=== PATIENT | male | born 1950 | race Caucasian/White ===

== ENCOUNTER 2017-12-06 15:38 | Inpatient (IN) | payer OTHER, MEDICARE ==
[2017-12-06] VITALS (17 sets, daily range): BP systolic 122–183; BP diastolic 45–89
[~2017-12-06] VITALS: Ht 193 cm; Wt 114.8 kg
[~2017-12-06 15:38] MED LIST: ASPIRIN325 PO; COLACE100 MG PO; DICLOFENAC SODI25 MG PO; NORCO 10-325 T1 EACH PO; TYLENOL325 MG PO; XARELTO10 MG PO; ZOCOR20 MG PO
[2017-12-06 16:03] LABS: ABSOLUTE BASOPHILS 0.1 thou/uL (0.0-0.2); ABSOLUTE EOSINOPHILS 0.5 thou/uL (0.0-0.7); ABSOLUTE LYMPHOCYTES 4.7 thou/uL (0.8-5.3); ABSOLUTE NEUTROPHILS 5.2 thou/uL (1.6-8.1); BASOPHILS 0.6 %; EOSINOPHILS 4.3 %; HEMATOCRIT 49.2 % (42.0-52.0); HEMOGLOBIN 16.3 gm/dL (14.0-18.0); LYMPHOCYTES 40.7 %; MCHC 33.1 g/dL (28.0-37.0); MCV 90.7 fL (80.0-100.0); MONOCYTES 8.6 %; MPV 7.9 fl. (7.2-11.1); NUCLEATED RBCS 0 /100WBC; PLATELET COUNT* 283 thou/uL (150-400); POLYS 45.8 %; RBC 5.43 mil/uL (4.50-6.00); RDW-CV 14.7 % (10.5-14.5); WBC 11.5 thou/uL (4.0-11.0)
[2017-12-06 16:08] LABS: ANION GAP 6 mmol/L (7-16); BUN 17 mg/dL (7-18); CALCIUM 9.5 mg/dL (8.5-10.1); CHLORIDE 105 mmol/L (98-107); CO2 27 mmol/L (21-32); CREATININE 1.1 mg/dL (0.6-1.3); GLUCOSE 112 mg/dL (70-99); POTASSIUM 3.7 mmol/L (3.5-5.1); SODIUM 138 mmol/L (136-145)
[2017-12-06 16:09] LABS: APTT 20.3 Seconds (25.0-31.3); PROTIME 9.4 Seconds (9.20-11.50)
[2017-12-06 16:19] LABS: ALBUMIN 3.9 g/dL (3.4-5.0); ALKALINE PHOSPHATASE 74 U/L (46-116); NT-PRO BRAIN NAT PEPTIDE 70 pg/mL (<300); SGOT 21 U/L (15-37); SGPT 52 U/L (30-65); TOTAL BILIRUBIN 0.8 mg/dL (<0.1-1.0); TOTAL PROTEIN 7.5 g/dL (6.4-8.2); TROPONIN-I LEVEL <0.06 ng/mL (<0.06)
--- NOTE | 2017-12-06 16:55 | NUR ---
REVIEWED DOCUMENTATION OF NSG STUDENT Alber MOJICA & JEFFERSON W/ SAME.
[2017-12-06] MEDS ORDERED: DICLOFENAC SODI75 MG PO (17:42)
--- NOTE | 2017-12-06 18:13 | NUR ---
SEE STROKE AND TPA FLOW SHEET.
--- NOTE | 2017-12-06 18:37 | NUR ---
PT FROM ER TO ROOM ICU 5 AT 1800. NIH 1 AT THIS TIME. TPA FINISHED ADMINISTERING IN THE ED. PT TO MRI MOMENTARILY. ASSESSMENT CHARTED. VSS AT THIS TIME, BP ELEVATED. WILL CONTINUE TO MONITOR.
--- NOTE | 2017-12-06 21:20 | NUR ---
PATIENT ALERT NIHSS OF 1 D/T MINIMAL LEFT SIDE DROOPING WHEN HE SMILES. HE IS ORIENT X4 DENIES WEAKNESS. PERFORMED A BEDSIDE SWALLOW STUDY. PT ABLE TO SWALLOW WATER WITH/OUT COMPLICATIONS. SPO2 STAYED THE SAME. ABLE TO CLEAR HIS THROAT. NO SOB. NO LEAKAGE FROM MOUTH. SPOKE WITH DR. ORTIZ ORDERS TO ALLOW PT TO EAT. HE WILL BE NPO AFTER MIDNIGHT. WILL CONTINUE TO MONITOR CLOSELY.
[2017-12-07] VITALS (11 sets, daily range): BP systolic 145–161; BP diastolic 64–73
[2017-12-07 04:44] LABS: HEMATOCRIT 43.4 % (42.0-52.0); HEMOGLOBIN 14.6 gm/dL (14.0-18.0); MCH 30.3 pg (26.0-34.0); MCHC 33.6 g/dL (28.0-37.0); MCV 90.3 fL (80.0-100.0); MPV 7.9 fl. (7.2-11.1); RBC 4.81 mil/uL (4.50-6.00); RDW-CV 14.5 % (10.5-14.5); WBC 10.5 thou/uL (4.0-11.0)
[2017-12-07 05:00] LABS: MAGNESIUM 1.9 mg/dL (1.8-2.4)
[2017-12-07 05:13] LABS: CHOLESTEROL 170 mg/dL (<200); HDL CHOLESTEROL 35 mg/dL (>40); LDL CHOLESTEROL 89 mg/dL (<100); TC:HDL 4.9 Ratio (Not establshd); TRIGLYCERIDE 230 mg/dL (<150); VLDL 46 mg/dL (<40)
[2017-12-07 05:23] LABS: SERUM ASSESSMENT CLEAR
--- NOTE | 2017-12-07 06:00 | NUR ---
PATIENT PROGRESSING TOWARDS GOALS. NIHSS OF 1. PT STATES HE FEELS HIS RIGHT ARM IS ALMOST TO BASELINE BUT STILL FEELS WEAKER THEN LEFT. PT WAS UNABLE TO SLEEP OVERNIGHT. PT STATED HE TAKES ZZZQUIL FOR SLEEP. PT NPO HAS SCHEDULAED ECHO AND VQ SCAN THIS A.M. PT UO ADEQUATE. NO FURTHER CONCERNS AT THIS TIME. WILL CONTINUE TO MONITOR CLOSELY.
--- NOTE | 2017-12-07 11:15 | NUR ---
SPOKE WITH PT AND . PT ADMITTED YESTERDAY WITH CVA, HE RECEIVED TPA IN E.D. AND SAID HE IS FEELING GOOD TODAY. HE HAS HAD A PREVIOUS STROKE BUT SAYS HE HAS NO DEFICITS FROM THAT STROKE. PT'S LIVES AND WORKS IN THIS AREA. 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 HE IS SUPPOSED TO GO BACK TO [place] IN THE NEXT COUPLE OF WEEKS. THERAPY EVALS PENDING. DISCUSSED ROLE OF CASE MGT, WILL CONTINUE TO FOLLOW.
--- NOTE | 2017-12-07 13:23 | EKG ---
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1950 Requested By: Emili Barnard Order Number: [id number] MD: Brannon Morelos Measurements Intervals [place] Rate: 54 P: 40 NC: 190 QRS: 7 QRSD: 122 T: 59 QT: 464 QTc: 440 Interpretive Statements Sinus bradycardia Right bundle branch block Compared to ECG 02/03/2016 16:23:44 Right bundle-branch block now present Electronically Signed On 12-07-2017 13:22:59 CDT by Brannon Morelos [email or web address] <ELECTRONICALLY SIGNED> By: Brannon Morelos MD, [facility] 12/07/17 1322 1729 1729 Brannon Morelos MD, [facility] /EPI
--- NOTE | 2017-12-07 15:43 | 2DMMODE ---
[place] [address] 2 D/M-MODE ECHOCARDIOGRAM Name: JU JOSEPH Room: [address] IN [facility]#: [id number] Admission: 12/06/17 Attend Phys: Maninder Marino, Discharge: Date of : 54 Date of Service: 12/07/17 1543 Report #: [id number] THIS REPORT FOR: //name// APPROVED REPORT Study performed: 12/07/2017 10:31:54 EXAM: Comprehensive 2D, Doppler, and color-flow Echocardiogram Patient Location: In-Patient Room #: [facility] Status: routine BSA: 2.39 HR: 68 bpm BP: 145/69 mmHg Rhythm: NSR Other Information Study Quality: Good Indications CVA/TIA Echo Enhancing Agent Indication: Rule out Shunt Agent(s) / Amount(s) Used: Agitated Saline 10 cc 2D Dimensions LVEF(%): 71.95 (>50%) IVSd: 12.45 (7-11mm) LVOT Diam: 22.17 (18-24mm) LVDd: 45.16 mm PWd: 9.63 (7-11mm) Ascending Ao: 34.37 (22-36mm) LVDs: 26.65 (25-40mm) Aortic Root: 39.07 mm Acevedo's LVEF: 71.95 % Volumes Left Atrial Volume (Systole) LA ESV Index: 34.10 mL/m2 Aortic Valve AoV Peak Prashanth.: 1.49 m/s AO Peak Gr.: 8.89 mmHg LVOT Max P.21 mmHg AO Mean Gr.: 4.84 mmHg LVOT Mean P.30 mmHg LVOT Max V: 1.14 m/s AO V2 VTI: 29.28 cm LVOT Mean V: 0.68 m/[place] [address] 2 D/M-MODE ECHOCARDIOGRAM Name: JU JOSEPH Room: [address] IN .R.#: [id number] Admission: 12/06/17 Attend Phys: Maninder Marino, Discharge: Date of : 54 Date of Service: 12/07/17 1543 Report #: [id number] LAVERN (VTI): 2.92 cm2 LVOT V1 VTI: 22.13 cm Mitral Valve E/A Ratio: 1.76 MV Decel. Time: 217.55 ms MV E Max Prashanth.: 0.84 m/s MV PHT: 63.09 ms MVA (PHT): 3.49 cm2 TDI E/Lateral E': 7.64 E/Medial E': 9.33 Medial E' Prashanth.: 0.09 m/s Lateral E' Prashanth.: 0.11 m/s Pulmonary Valve PV Peak Prashanth.: 1.35 m/s PV Peak Gr.: 7.26 mmHg Tricuspid Valve RAP Estimate: 5.00 mmHg TR Peak Gr.: 23.43 mmHg RVSP: 28.43 mmHg PA Pressure: 28.43 mmHg Left Ventricle The left ventricle is normal size. There is normal LV segmental wall motion. There is normal left ventricular wall thickness. Left ventricular systolic function is normal. The left ventricular ejection fraction is within the normal range. LVEF is 60-65%. The left ventricular diastolic function is normal. Right Ventricle Right ventricle is dilated. The right ventricular systolic function is normal. Atria Left atrium is mildly dilated. Interatrial septum is intact without evidence of ASD or PFO. Right atrium is dilated. Aortic Valve The aortic valve is normal in structure. No aortic regurgitation is present. There is no aortic valvular stenosis. Mitral Valve The mitral valve is normal in structure. Trace mitral regurgitation. No evidence of mitral valve stenosis[place] [address] 2 D/M-MODE ECHOCARDIOGRAM Name: JU JOSEPH Room: [address] IN ..#: [id number] Admission: 12/06/17 Attend Phys: Maninder Marino, Discharge: Date of : 54 Date of Service: 12/07/17 1543 Report #: [id number] The tricuspid valve is normal in structure. Trace tricuspid regurgitation. estimated pa pressure 30 mm Hg Pulmonic Valve The pulmonary valve is normal in structure. There is no pulmonic valvular regurgitation. Great Vessels The aortic root is normal in size. IVC is normal in size and collapses with >50% inspiration Pericardium There is no pericardial effusion. <Conclusion> LVEF is 60-65%. Left atrium is mildly dilated. Interatrial septum is intact without evidence of ASD or PFO. <ELECTRONICALLY SIGNED> By: Brannon Morelos MD, FACC 12/07/17 1543 1543 1543 Brannon Morelos MD, FACC /INF
--- NOTE | 2017-12-07 16:06 | NUR ---
PATIENT UP IN ROOM. TOLERATED PT AND OT ALSO CARDIAC REHAB. PT HAS MEMORIZED VISUAL AIDS FOR NIH. TAKING PO WO SIGNS OF ASPIRATION.
--- NOTE | 2017-12-07 16:12 | NUR ---
I have reviewed the documentation by TEODORA CATALAN from 12/07/17 to 12/07/17 and I concur with it. PATRICK, DELTA
--- NOTE | 2017-12-07 18:43 | NUR ---
CT SHOWS NO EVIDENCE OF INFARCTION PATIENT MAY TRANSFER TO TELEMETRY. DENIES DISTRESS.
--- NOTE | 2017-12-07 20:17 | NUR ---
ASSUMED PATIENT CARE AT 1900. PATIENT ALERT AND ORIENTED TIMES FOUR. ALL IVS PATENT TO FLUSHES. SPOUSE BROUGHT DINNER TO PATIENT. NO COMPLAINTS OF PAIN OR DISCOMFORT. DIRECTOR OF REHABILITATION COMPLETED DOCUMENTED. 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 PATIENT IN AGREEMENT WITH TRANSFER.
[2017-12-07 23:10] LABS: GLYCOHEMOGLOBIN (HGB A1C) 5.3 % (4.8-5.6)
[2017-12-08] VITALS: BP 127/54
[2017-12-08 04:00] VITALS: BP 143/66
--- NOTE | 2017-12-08 05:42 | NUR ---
RECEIVED REPORT FROM ICU NURSE. PT TRANSFERRED TO 205 VIA CART. PT A&OX4. ADMISSION HISTORY AND PHYSICAL ASSESSMENT COMPLETED AND CHARTED. VSS. NIH STROKE ASSESSMENT-1.PT ON RA WITH 94% O2 SAT. PT TRACING SR/SB BBB ON TELE. PT UP ADLIB. ORIENTED TO ROOM & CALL LIGHT. DENIES ANY PAIN OR DISCOMFORT. HOURLY ROUNDING OBSERVED. HS REST & SAFETY GOALS ACHIEVED. CALL LIGHT WITHIN REACH. BED IN LOW POSITION.
[2017-12-08 08:00] VITALS: BP 162/78
--- NOTE | 2017-12-08 10:58 | NUR ---
ASSUMED REPONSBILITY OF PT THIS AM PT IS ALERT AND ORIENTED UP AD OK [facility] AT 1 D/T SLIGHT DROOPING TO LEFT SIDE OF FACE NEURO TO SEE LABS ORDERED DENIES ANY PAIN OR DISCOMFORT BP SLIGHTLY ELEVATED CALL LIGHT IN REACH AND FAMILY AT BEDSIDE
[2017-12-08 12:02] VITALS: BP 180/86
[2017-12-08 15:29] VITALS: BP 126/72
--- NOTE | 2017-12-08 18:08 | NUR ---
PT OKAY THROUGH DAY NO PAIN AT THIS TIME BLOOD PRESSURE DECREASED AFTER MED GIVEN AT BEDSIDE THROUGHOUT DAY NO MORE DIZZY/LIGHT HEADEDNESS SINCE THIS AFTERNOON PLAN FOR DC TOMORROW IF NO MORE ISSUES WILL CONT TO MONITOR
[2017-12-08 20:00] VITALS: BP 157/64
[2017-12-09] VITALS: BP 137/69
[2017-12-09 04:29] VITALS: BP 143/71
--- NOTE | 2017-12-09 04:38 | NUR ---
ASSUMED CARE OF PT AFTER REPORT AT 1930. PT A&OX4. VSS. PHYSICAL ASSESSMENT COMPLETED AND CHARTED. PT ON RA WITH 94% O2 SAT. PT TRACING SB BBB ON TELE. PT UP ADLIB. NIH SCORE-1 WITH MINOR FACIAL DROOPING ON THE LEFT. DENIES ANY PAIN, LIGHTHEADEDNESS OR DISCOMFORT AT THIS TIME. CALL LIGHT WITHIN REACH. BED IN LOW POSITION.
[2017-12-09 05:08] LABS: CALCIUM 9.1 mg/dL (8.5-10.1); CREATININE 0.9 mg/dL (0.6-1.3)
[2017-12-09 11:30] VITALS: BP 162/70
[2017-12-09] MEDS ORDERED: PLAVIX 75 MG TA75 M1 PO (15:50)
[2017-12-09] MEDS ORDERED: LIPITOR 20 MG T20 M1 PO (15:52)
[2017-12-09] MEDS ORDERED: PEPCID20 MG PO (15:55)
[2017-12-09 15:58] VITALS: BP 162/70
--- NOTE | 2017-12-09 16:37 | NUR ---
ORDER RECEIVED TO DISCHARGE [facility] TO SELF CARE. MED REC, MEDICATION EDCUATION, STROKE EDUCATION AND NEE DFOR FOLLOW UP APPOINTMNETS COVERED AND STATED UNDERSTOOD BY PATIENT. IV AND TELEMETRY PACK REOMVED. PAITNET INSTRUCTED REGARDING FOLLOW UP APPOINTMETNS IWTH CARDILOGY, NEUROLOGY, AND PT/OT. HOURLY ROUNDING COMPLETD FOR PATIENT SAFETY. DC TIME OF 16:35.
--- NOTE | 2017-12-10 08:35 | CON ---
[address] [address] CONSULTATION Name: JU JOSEPH Room: [address] IN M.R.#: [id number] Admission: 12/06/17 Attend Phys: Maninder Marino MD Discharge: 12/09/17 Date of : 54 Report #: [id number] THIS REPORT FOR: //name// CC: BOOM Marino Physician staff DATE OF SERVICE: 12/06/2017 HISTORY OF PRESENT ILLNESS: This is a 67-year-old male patient who was seen by me for an acute onset of dizziness, nausea, vomiting. His , who is a nurse practitioner also noticed some facial asymmetry. He received TPA in the Emergency Room and when I saw him, he was feeling better. 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 He even had a MARICRUZ. He has not had any prolonged monitoring like 30 days event monitor. REVIEW OF SYSTEMS: Indicate that he had a stroke in the past, but otherwise he is healthy. He was never a smoker and he had some hip surgery from which he is recovering. He has some spasms, but nothing drastic. He is the only child, so the family history is not known about the stroke. On the mother's side, there is no stroke. Father's side history is not known well. Review of systems is otherwise mostly noncontributory. A 14-point review of system was carried out. PAST MEDICAL HISTORY: Positive for stroke. FAMILY HISTORY: Not very impressive for stroke, but is poor. It is not available very much. SOCIAL HISTORY: He does not smoke. PHYSICAL EXAMINATION: Indicate he is alert. He is responsive, is not dizzy anymore. He still feels somewhat ataxic on the right side. His cranial nerve examination in higher function looks unremarkable. His strength and sensation looks okay, but he has ataxia on the right side. His cardiac examination is unremarkable. Blood pressure is 154/76, respirations 16, pulse is 61. LABORATORY DATA: Indicate a slightly higher white count, but is otherwise mostly unremarkable. He has no signs of bleeding. His imaging studies were reviewed and it did show stroke in the posterior fossa. IMPRESSION: 1. Posterior fossa cerebrovascular accident. 2. Second cerebrovascular accident. His PTT is low and in fact was also low in 2016. Because of the low PTT, hypercoagulable workup need to be done once TPA is out of his system. He will need prolonged monitoring [place] [address] CONSULTATION Name: JU JOSEPH Room: [address] IN .R.#: [id number] Admission: 12/06/17 Attend Phys: Maninder Marino MD Discharge: 12/09/17 Date of : 54 Report #: [id number] fibrillation and we need to get his MARICRUZ from [place] to see if he had any patent foramen ovale at that time. All of it was discussed with the patient and he understood it very well. More than 50 minutes of time was spent taking care of this patient today and majority of that time was spent counseling the patient and coordinating his care by talking to other health healthcare representative, reviewing his data, etc. <ELECTRONICALLY SIGNED> By: Jani Blake MD 12/10/17 0835 [id number] Blake MD /nt
[2017-12-11 13:08] LABS: ANTI-DNA SCREEN <1 IU/mL (0-9); ANTI-RNP 0.9 AI (0.0-0.9)
== END 2017-12-09 16:45 | disposition home or self-care (01) | DRG 63 ==
LOC: M.ERS 15:38 → M.TBA-ER 17:19 → M.ICU 17:19 → M.2W 12-07 21:02
PROVIDERS: Family Medicine; Personal Emergency Response Attendant; ADMIT Internal Medicine
DX: I63.9 Cerebral infarction, unspecified (principal); I10 Essential (primary) hypertension; E78.5 Hyperlipidemia, unspecified; E66.9 Obesity, unspecified; Z68.30 Body mass index [BMI] 30.0-30.9, adult; Z88.6 Allergy status to analgesic agent; Z79.82 Long term (current) use of aspirin; Z79.899 Other long term (current) drug therapy; Z90.49 Acquired absence of other specified parts of digestive tract; Z82.49 Family history of ischemic heart disease and other diseases of the circulatory system

== ENCOUNTER → 2017-12-18 | Outpatient (CLI) | payer OTHER, MEDICARE ==
[~2017-12-18] MED LIST changes: +DICLOFENAC SODI75 MG PO; +LIPITOR 20 MG T20 M1 PO; +PEPCID20 MG PO; +PLAVIX 75 MG TA75 M1 PO
== END ==
LOC: M.LAB 14:52
PROVIDERS: Psychiatry & Neurology Neuromuscular Medicine
DX: E78.5 Hyperlipidemia, unspecified (principal); I63.9 Cerebral infarction, unspecified